=== PATIENT | male | born 1935 | race Caucasian/White ===

== ENCOUNTER → 2018-11-21 | Outpatient (CLI) | payer OTHER, MEDICARE ==
[~2018-11-21] MED LIST: GADOBUTROL 10 ML VIAL IVP ONE
== END ==
LOC: FIMAGING 15:11
DX: R97.20 Elevated prostate specific antigen [PSA] (principal); N40.2 Nodular prostate without lower urinary tract symptoms
CPT/HCPCS: 72197; 76377; A9585; 82565-PO